=== PATIENT | female | born 1955 | race Caucasian/White ===

== ENCOUNTER 2020-06-28 07:31 | Emergency (ER) | payer OTHER ==
[~2020-06-28] VITALS: Ht 167.6 cm; Wt 78.9 kg
[2020-06-28 07:44] VITALS: BP 150/75
[2020-06-28] MEDS ORDERED: GABAPENTIN100 MG PO (07:47)
[2020-06-28] MEDS ORDERED: CARVEDILOL25 MG PO (07:47)
[2020-06-28] MEDS ORDERED: COZAAR 25 MG TA25 M1 PO (07:47)
[2020-06-28] MEDS ORDERED: JANUVIA25 MG PO (07:47)
[2020-06-28] MEDS ORDERED: REXULTI1 MG PO (07:48)
[2020-06-28] MEDS ORDERED: VITAMIN B-121000 MC2 SUBLING (07:48)
[2020-06-28] MEDS ORDERED: ZETIA10 MG PO (07:48)
[2020-06-28] MEDS ORDERED: VENLAFAXINE HCL25 MG PO (07:48)
[2020-06-28] MEDS ORDERED: VESICARE10 M1 PO (07:48)
[2020-06-28] MEDS ORDERED: NORCO 5-325 TA1 EAC2 PO (08:14)
== END 2020-06-28 08:25 | disposition home or self-care (01) ==
LOC: M.ERS 07:31
DX: S52.502A Unspecified fracture of the lower end of left radius, initial encounter for closed fracture (principal); J45.909 Unspecified asthma, uncomplicated; I10 Essential (primary) hypertension; E78.5 Hyperlipidemia, unspecified; E11.9 Type 2 diabetes mellitus without complications; G43.909 Migraine, unspecified, not intractable, without status migrainosus; Z98.890 Other specified postprocedural states; Z79.899 Other long term (current) drug therapy; Z88.8 Allergy status to other drugs, medicaments and biological substances; Z91.041 Radiographic dye allergy status; Z88.7 Allergy status to serum and vaccine; W18.39XA Other fall on same level, initial encounter; Y93.89 Activity, other specified; Y92.89 Other specified places as the place of occurrence of the external cause; Y99.8 Other external cause status